=== PATIENT | male | born 1930 | race Caucasian/White ===

== ENCOUNTER 2018-06-20 16:12 | Emergency (ER) | payer MEDICARE, OTHER ==
[~2018-06-20] VITALS: Ht 180.3 cm; Wt 103.4 kg
[2018-06-20] MEDS ORDERED: DIPHTH,PERTUSS(ACELL),TET TOX 0.5 ML DISP.SYRIN. VAX IM ONE (17:15)
[2018-06-20] MEDS ORDERED: LIDOCAINE 2% 20 ML VIAL. IJ ONE (17:15)
[2018-06-20] MEDS ORDERED: NEOMY/BACITR/POLYMYXIN OINT PACKET. TP ONE ×2 (17:36→17:45)
[2018-06-20 18:00] VITALS: BP 123/78
[2018-06-20] MEDS ORDERED: HYDR-971 PO (18:13)
--- NOTE | 2018-06-20 18:14 | PHYS DOC ---
Past Medical History Past Medical History: Hypertension, TIA, Other Additional Past Medical Histor: bradycardia Past Surgical History: Pacemaker, Tonsillectomy, Other Additional Past Surgical Histo: cardiac cath with stents Alcohol Use: None Drug Use: None Adult General Chief Complaint Chief Complaint: MECHANICAL FALL HPI HPI Patient is a 87 year old male who presents with several abrasions and a laceration to his left hand [place] The patient states that he tripped over a concrete curbing causing him to pitch forward. He skinned his right knee and has a small skin tear on his right palm, he has the larger laceration on the left palm. He denies loss of consciousness or any other injury. He is in need of tetanus booster. Review of Systems Review of Systems Constitutional: Denies fever or chills [] Respiratory: Denies cough or shortness of breath [] Cardiovascular: No additional information not addressed in HPI [] Musculoskeletal: Denies back pain or joint pain [] Integument: There is a 6 cm U-shaped laceration to the left palmar surface, there is a 1 cm skin tear on his right palmar surface as well as a 1 cm abrasion to the right knee Neurologic: Denies headache, focal weakness or sensory changes [] Endocrine: Denies polyuria or polydipsia [] All other systems were reviewed and found to be within normal limits, except as documented in this note. Current Medications Current Medications Current Medications Medications (Trade) Dose Ordered Sig/Ivan Start Time Stop Time Status Last Admin Dose Admin Diphtheria/ Tetanus/Acell Pertussis (Boostrix) 0.5 ml ONCE ONCE 06/20/18 17:15 06/20/18 17:16 DC 06/20/18 17:52 0.5 ML Lidocaine HCl 20 ml 1X ONCE 06/20/18 17:15 06/20/18 17:16 DC 06/20/18 17:33 20 ML Neomycin/ Polymyxin/ Bacitracin (Triple Antibiotic Ointment) 1 pkt 1X ONCE 06/20/18 17:45 06/20/18 17:46 DC 06/20/18 17:52 1 PKT Allergies Allergies Allergies Coded Allergies Type Severity Reaction Last Updated Verified No Known Drug Allergies 06/20/18 No Physical Exam Physical Exam Constitutional: Well developed, well nourished, no acute distress, non-toxic appearance. [] HENT: Normocephalic, atraumatic, bilateral external ears normal, oropharynx moist, no oral exudates, nose normal. [] Eyes: PERRLA, EOMI, conjunctiva normal, no discharge. [] Neck: Normal range of motion, no tenderness, supple, no stridor. [] Cardiovascular:Heart rate regular rhythm, no murmur [] Lungs & Thorax: Bilateral breath sounds clear to auscultation [] Abdomen: Bowel sounds normal, soft, no tenderness, no masses, no pulsatile masses. [] Skin: Warm, dry, no erythema, no rash. [] Back: No tenderness, no CVA tenderness. [] Extremities: No tenderness, no cyanosis, no clubbing, ROM intact, no edema. [] Neurologic: Alert and oriented X 3, normal motor function, normal sensory function, no focal deficits noted. [] Psychologic: Affect normal, judgement normal, mood normal. [] Current Patient Data Vital Signs Vital Signs Date Time Temp Pulse Resp B/P (MAP) Pulse Ox O2 Delivery O2 Flow Rate FiO2 06/20/18 17:00 96 06/20/18 16:15 97.6 89 20 122/76 (91) Room Air 97.6 EKG EKG [] Radiology/Procedures Radiology/Procedures []PATIENT: PAUL PIERCE BACCOUNT: [id number]#: [id number] : 1930 LOCATION: ER AGE: 87 SEX: M EXAM STATUS: DEP ER ORD. PHYSICIAN: HOMER LOPEZ DO REASON: fell, bilateral wrist injury PROCEDURE: WRIST BILAT 3V Examination: 3 views of the bilateral wrists HISTORY: History of fall, pain Comparison: None available Findings: Severe degenerative changes identified in the left first carpometacarpal joint. Moderate degenerative changes identified in the right first carpal metacarpal joint. The alignment the carpal joints grossly appears unremarkable bilaterally. Unfused ossicle or old fracture of the ulnar styloid on the left. Mild soft tissue swelling identified dorsal to the right wrist. IMPRESSION: 1. No acute osseous findings. Electronically signed by: Jacobo Zuluaga MD (06/20/2018 7:27 PM) [facility] DICTATED and SIGNED BY: JACOBO ZULUAGA MD DATE: 06/20/181923 Laceration Repair by me: Anesthesia: 1% lidocaine locally Location: Left palm Tendon/Joint/Nerves: No injury Foreign body: None detected after copious irrigation and exploration Technique: 14 Simple Interrupted Sutures Complexity: No subcutaneous sutures/mucosal repair/edge excision Post Closure Length: 6 cm Patient's bleeding was easily controlled in the department and there is no indication of anemia. No evidence of compartment syndrome, neurologic injury, vascular injury, open joint, tendon laceration, or foreign body. Patient is appropriate for outpatient follow up. 48 hour wound check. Scar minimization instructions given. Course & Med Decision Making Course & Med Decision Making Pertinent Labs and Imaging studies reviewed. (See chart for details) []The patient received a tetanus booster in the emergency department. Dragon Disclaimer Dragon Disclaimer This electronic medical record was generated, in whole or in part, using a voice recognition dictation system. Departure Departure Impression: Primary Impression: Laceration Additional Impressions: Abrasions of multiple sites Need for tetanus booster Disposition: 01 HOME, SELF-CARE Condition: STABLE Referrals: MARKO GOODE MD (PCP) Patient Instructions: Abrasions, Laceration Care, Adult Additional Instructions: Take the medication as prescribed. Do not drive or operate heavy machinery while taking this medication. Follow-up with your primary care provider in 7-10 days for suture removal. Keep a close eye on your wounds. If they look infected follow-up with primary sooner or return to the emergency department. Scripts Hydrocodone/Apap 5-325 (NORCO 5-325 TABLET) 1 Each Tablet 1 TAB PO PRN Q6HRS PRN for PAIN, #14 TAB 0 Refills Prov: KYMBERLY CASH APRN 06/20/18 Problem Qualifiers KYMBERLY CASH APRN Jun 20, 2018 18:14
--- NOTE | 2018-06-20 19:30 | RAD ---
Examination: 3 views of the bilateral wrists HISTORY: History of fall, pain Comparison: None available Findings: Severe degenerative changes identified in the left first carpometacarpal joint. Moderate degenerative changes identified in the right first carpal metacarpal joint. The alignment the carpal joints grossly appears unremarkable bilaterally. Unfused ossicle or old fracture of the ulnar styloid on the left. Mild soft tissue swelling identified dorsal to the right wrist. IMPRESSION: 1. No acute osseous findings. Electronically signed by: Jacobo Zuluaga MD (06/20/2018 7:27 PM) [facility]
== END 2018-06-20 18:30 | disposition home or self-care (01) ==
LOC: ER 16:12
DX: S61.412A Laceration without foreign body of left hand, initial encounter (principal); S61.411A Laceration without foreign body of right hand, initial encounter; S80.211A Abrasion, right knee, initial encounter; I10 Essential (primary) hypertension; Z86.73 Personal history of transient ischemic attack (TIA), and cerebral infarction without residual deficits; Z95.5 Presence of coronary angioplasty implant and graft; Z95.0 Presence of cardiac pacemaker; W18.09XA Striking against other object with subsequent fall, initial encounter; Y93.89 Activity, other specified; Y92.89 Other specified places as the place of occurrence of the external cause; Y99.8 Other external cause status
CPT/HCPCS: 12002; 73110; 90471; 90715; 99284; J2001